=== PATIENT | male | born 1955 | race Caucasian/White ===

== ENCOUNTER → 2022-05-26 11:23 | Outpatient (BNVA) | payer BC, MEDICARE, SELFPAY | PROVIDERS: Visit Provider Nurse Practitioner Family | DX: R25.9 Unspecified abnormal involuntary movements (principal); F39 Unspecified mood [affective] disorder | CPT/HCPCS: 99212 ==

== ENCOUNTER → 2022-08-27 11:23 | Outpatient (BNVA) | payer MEDICARE, SELFPAY | PROVIDERS: Visit Provider Nurse Practitioner Family | DX: R25.9 Unspecified abnormal involuntary movements (principal); F39 Unspecified mood [affective] disorder | CPT/HCPCS: 99212 ==

== ENCOUNTER → 2022-12-29 09:49 | Outpatient (BNVA) | payer MEDICARE, SELFPAY | PROVIDERS: PCP Internal Medicine; Visit Provider Nurse Practitioner Family | DX: R25.9 Unspecified abnormal involuntary movements (principal); F39 Unspecified mood [affective] disorder | CPT/HCPCS: 99212 ==

== ENCOUNTER 2023-05-05 09:26 | Outpatient (AMB) | payer MEDICARE, SELFPAY ==
--- NOTE | 2023-05-05 09:47 | A.OFFVIS_ITS ---
Intake Vital Signs 05/05/23 09:50 Height 5 ft 6 in Weight 194 lb 4 oz BMI 31.3 BP 136/74 Blood Pressure Location Rt brachial Position Sitting Pulse 61 Pulse Source Pulse Oximeter Pulse Oximetry (%) 97 Oxygen Delivery Method Room Air Intake Visit Reasons: 4m follow up abn movements-Confirmed Intake Note: Patient presents for 4 month follow up. Patient states no concerns or issues today. Allergies No Known Allergies Allergy (Verified 05/05/23 09:50) Medication List - Last Reconciled 05/05/23 by ADÁN Arteaga betamethasone dipropionate 0.05% topical guaifenesin ER (Mucinex) 600 mg PO DAILY ibuprofen 800 mg PO TID PRN lisinopril-hydrochlorothiazide 20-12.5 mg 1 tab PO DAILY metformin 850 mg PO BID risperidone 0.5 mg PO BID 30 days sertraline 50 mg PO QAM simvastatin 20 mg PO BEDTIME sitagliptin phosphate (Januvia) 100 mg PO DAILY HPI HPI Comments History of Present Illness Details 67-yr-old male presents for f/u visit, a ccompanied by his . Pt denies any significant interval medical changes. Pt reports that he has stopped Lisinopril. Since, his throat clearing has decreased some but not fully. He states he is tolerating Risperidone well. Denies any tremors, other involuntary movements, sedation. [facility] Medical History Back injury Cognitive dysfunction Diabetes HLD (hyperlipidemia) Family History Mother Alzheimer disease Asthma Social History Alcohol intake: never Patient Tobacco Use Status: Never used Tobacco Review of Systems Const All systems reviewed & are unremarkable except as noted in HPI and below Physical Exam Vital Signs: Last Vital Signs Pulse 61 05/05/23 09:50 BP 136/74 05/05/23 09:50 Pulse Ox 97 05/05/23 09:50 Oxygen Delivery Method Room Air 05/05/23 09:50 BMI result Body Mass Index 31.3 Const General: cooperative and no acute distress Orientation/consciousness: patient oriented x3 HEENT Head: Yes normocephalic Resp Effort & Inspection: normal respiratory effort and able to speak in complete sentences Neuro Other: Intermittent throat clearing General: patient oriented x3, gait normal and CN's II-XI intact bilaterally Cognition (Neuro): normal cognition Motor exam (neuro): 5/5 motor strength present throughout Psych Appearance: grossly normal Mental Status: mental status grossly normal Speech and movement: Clear speech present Affect: normal affect Attitude: cooperative Thought process: Normal thought process present Assessment & Plan Assessment & Plan (1) Abnormal involuntary movement: Comment: tic disorder vs laryngeal dystonia w/o dysarthria Code(s): R25.9 - Unspecified abnormal involuntary movements (2) Mood disorder: Code(s): F39 - Unspecified mood [affective] disorder Plan Increase Risperidone from 0.5mg bid to 0.5mg qam and 1mg qhs Discussed that I would like to try weaning pt off of Lisinopril, as long as Dr Jasmine agrees, before increasing or trying an alternate neuroleptic tx, in hopes this lessens throat clearing episodes- per [facility] recommendations. Pt previously offered referral for psychotherapy- pt declined. Monitor mood. Future considerations: [place] [facility] [place] f/u in 4 months or sooner prn Medications: Changed From risperidone 0.5 mg PO BID 30 days 60 tabs 3RF To risperidone 1 tab in am and 2 tabs qhs orally 2 times a day; 30 days 60 tabs 3RF Coding Level of Care Code Est Pt Level 4 (02755) Diagnoses Abnormal involuntary movement R25.9 Mood disorder F39
[2023-05-05 09:50] VITALS: BP 136/74; PULSE 61; O2SAT 97; BMI 31.3
== END 2023-05-05 10:13 | disposition home or self-care (01) ==
PROVIDERS: PCP Internal Medicine; Visit Provider Nurse Practitioner Family
DX: R25.9 Unspecified abnormal involuntary movements (principal); F39 Unspecified mood [affective] disorder
CPT/HCPCS: 99214

== ENCOUNTER → 2023-05-05 09:26 | Outpatient (BNVA) | payer MEDICARE, SELFPAY | PROVIDERS: PCP Internal Medicine; Visit Provider Nurse Practitioner Family | DX: R25.9 Unspecified abnormal involuntary movements (principal); F39 Unspecified mood [affective] disorder | CPT/HCPCS: 99212 ==

== ENCOUNTER 2023-08-31 13:00 | Outpatient (AMB) | payer MEDICARE, SELFPAY ==
--- NOTE | 2023-08-31 13:02 | A.OFFVIS_ITS ---
Intake Vital Signs 08/31/23 13:03 Height 5 ft 6 in Weight 194 lb BMI 31.3 BP 98/70 Blood Pressure Location Rt brachial Position Sitting Pulse 70 Pulse Source Pulse Oximeter Pulse Oximetry (%) 95 Oxygen Delivery Method Room Air Intake Visit Reasons: 4 mo f/u - Abn movements-LVM Intake Note: Patient presents for follow up. no issues or concerns Allergies No Known Allergies Allergy (Verified 08/31/23 13:06) HPI HPI Comments History of Present Illness Details 67-yr-old male presents for f/u visit. P t is accompanied by his . Pt denies any significant interval medical changes. Pt reports he has had a decrease in his vocal clearing tics since the last visit, when we increased the risperdal. He is tolerating the risperdal well. His notes that he does not have good motivation- she feels he is sitting too much. He was doing better last summer, when they were camping as he has made friends and there are a lot of activities to do. They will return to camping on October 27- they have a stationary camper in [place]. He no longer drives his large camper- was not able to drive/manage it any longer. He does feel that he is forgetful- more STM- things that happened a week or two ago. He may forget his children's date of - that his son visited recently, what his son is doing for work. His manages all the finances. has always done this, he used to help organize the bills/financial paperwork but now he does not do this. He may misplace things. States he cannot walk d/t pain in his legs- he cannot describe- just a pain from his hips through his feet. States if he walks today, he will not be able to walk tomorrow. [facility] Medical History (Updated 08/31/23 @ 20:50 by ADÁN Arteaga) Back injury HLD (hyperlipidemia) Diabetes Cognitive dysfunction Family History Mother Alzheimer disease Asthma Social History Alcohol intake: never Patient Tobacco Use Status: Never used Tobacco Physical Exam Vital Signs: Last Vital Signs Pulse 70 08/31/23 13:03 BP 98/70 08/31/23 13:03 Pulse Ox 95 08/31/23 13:03 Oxygen Delivery Method Room Air 08/31/23 13:03 BMI result Body Mass Index 31.3 Const General: cooperative and no acute distress Orientation/consciousness: patient oriented x3 Resp Effort & Inspection: normal respiratory effort and able to speak in complete sentences Neuro Other: Mild intermittent throat clearing General: patient oriented x3 Cranial nerves: Yes CN's II-XII intact bilaterally Cognition (Neuro): normal cognition Psych Appearance: grossly normal Mental Status: mental status grossly normal Speech and movement: Clear speech present Affect: normal affect Attitude: cooperative Assessment & Plan Assessment & Plan (1) Abnormal involuntary movement: Comment: tic disorder vs laryngeal dystonia w/o dysarthria Code(s): R25.9 - Unspecified abnormal involuntary movements (2) Mood disorder: Code(s): F39 - Unspecified mood [affective] disorder (3) Cognitive dysfunction: Comment: transient episodes of confusion, forgetfulness. Code(s): F09 - Unspecified mental disorder due to known physiological condition Plan Continue Risperidone 0.5mg qam and 1mg qhs Encouraged to increase walking. Offered PT- pt declines at this time. Pt previously offered referral for psychotherapy- pt declined. Monitor mood. Monitor cognition. Plan for f/u MMSE and Clock drawing at f/u. Future considerations: Referral to [facility] [place]. f/u in 6 months or sooner prn. Coding Level of Care Code Est Pt Level 4 (42881) Diagnoses Abnormal involuntary movement R25.9 Mood disorder F39 Cognitive dysfunction F09
[2023-08-31 13:03] VITALS: BP 98/70; PULSE 70; O2SAT 95; BMI 31.3
== END 2023-08-31 13:43 | disposition home or self-care (01) ==
PROVIDERS: PCP Internal Medicine; Visit Provider Nurse Practitioner Family
DX: R25.9 Unspecified abnormal involuntary movements (principal); F39 Unspecified mood [affective] disorder; R41.89 Other symptoms and signs involving cognitive functions and awareness
CPT/HCPCS: 99214

== ENCOUNTER → 2023-08-31 13:00 | Outpatient (BNVA) | payer MEDICARE, SELFPAY | PROVIDERS: PCP Internal Medicine; Visit Provider Nurse Practitioner Family | DX: F09 Unspecified mental disorder due to known physiological condition (principal); F39 Unspecified mood [affective] disorder; R25.9 Unspecified abnormal involuntary movements | CPT/HCPCS: 99212 ==

== ENCOUNTER 2024-03-01 13:27 | Outpatient (AMB) | payer MEDICARE, SELFPAY ==
[2024-03-01 13:45] VITALS: BP 98/72; PULSE 70; O2SAT 96; BMI 29.9
--- NOTE | 2024-03-01 13:45 | MHC.OFFVIS ---
Vital Signs 03/01/24 13:45 Height 5 ft 6 in Weight 185 lb BMI 29.9 BP 98/72 Blood Pressure Location Rt brachial Position Sitting Pulse 70 Pulse Source Pulse Oximeter Pulse Oximetry (%) 96 Oxygen Delivery Method Room Air Intake Visit Reasons: 6 mo f/u Intake Note: Patient presents for 6 month follow up. Allergies No Known Allergies Allergy (Verified 03/01/24 13:48) Medication List - Last Reconciled 03/01/24 by ADÁN Arteaga betamethasone dipropionate 0.05% topical guaifenesin ER (Mucinex) 600 mg PO DAILY ibuprofen 800 mg PO TID PRN lisinopril-hydrochlorothiazide 20-12.5 mg 1 tab PO DAILY metformin 850 mg PO BID risperidone 1 tab in am and 2 tabs qhs orally 2 times a day; 30 days sertraline 50 mg PO QAM simvastatin 20 mg PO BEDTIME sitagliptin phosphate (Januvia) 100 mg PO DAILY HPI Comments Details: 68-yr-old male presents for f/u visit. Pt denies any significant interval medical changes. Cough tic is a bit better- but does have good days and worse days- not sure what triggers worse days. Maybe certain foods. His memory is about the same. Some STM lapses. He may misplace things. His manages all the finances. has always done this, he used to help organize the bills/financial paperwork but now he does not do this. He is not physically active- states he cannot walk much as his legs hurt. He denies BLE numbness/tingling or weakness. He is not sure if he has leg cramps when walking. [facility] Medical History (Updated 03/01/24 @ 16:48 by ADÁN Arteaga) Back injury HLD (hyperlipidemia) Diabetes Cognitive dysfunction Family History Mother Alzheimer disease Asthma Social History Alcohol intake: never Patient Tobacco Use Status: Never used Tobacco Review of Systems Const All systems reviewed & are unremarkable except as noted in HPI and below Physical Exam Vital Signs: Last Vital Signs Pulse 70 03/01/24 13:45 BP 98/72 03/01/24 13:45 Pulse Ox 96 03/01/24 13:45 Oxygen Delivery Method Room Air 03/01/24 13:45 BMI result Body Mass Index 29.9 Const General: cooperative and no acute distress Orientation/consciousness: patient oriented x3 Resp Effort & Inspection: normal respiratory effort and able to speak in complete sentences Neuro Other: No vocal tic or cough observed today. Clock drawing- good clock drawing, numbers just slightly skewed counter clock-pizano. General: patient oriented x3, gait normal and CN's II-XI intact bilaterally Cognition (Neuro): normal cognition Gait exam (Neuro): Normal gait present Motor exam (neuro): 5/5 motor strength present throughout Deep tendon reflexes (DTR's): Right patellar reflex intensity grade: 1+ and Left patellar reflex intensity grade: 1+ Psych Appearance: grossly normal Mental Status: mental status grossly normal Speech and movement: Normal speech and movement present Affect: normal affect Attitude: cooperative Orientation What is the (year) (season) (date) (day) (month)?: year, season, date, day and month Where are we (state) (county) (town or city) (hospital) (floor)?: state, county, town or city, hospital/clinic and floor Registration Name of 3 unrelated objects clearly and slowly, then ask patient to repeat all 3 of them. (1st repeat determines score. Make sure they can repeat all three): object 1, object 2 and object 3 Attention & Calculation (CHOOSE ONE) Spell WORLD backwards (DLROW): 5 letters Language Show patient a wristwatch & ask what it is. Repeat for pencil.: watch and pencil Ask the patient to repeat the phrase 'No ifs, ands, or buts' after you.: correct Ask the patient to 'take a piece of paper with their right hand' 'fold paper in half' 'place paper on floor': take paper in right hand, fold paper in half and place paper on floor Print the sentence 'CLOSE YOUR EYES' on a piece. If patient actually closes eyes then score.: followed written direction Give patient a blank piece of paper & ask to write a sentence. Score if it contains a noun & verb.: sentence contains subject and verb Score Score: 26 Assessment & Plan Assessment & Plan (1) Abnormal involuntary movement: Comment: tic disorder vs laryngeal dystonia w/o dysarthria Code(s): R25.9 - Unspecified abnormal involuntary movements Category: Medical (2) Cognitive dysfunction: Comment: Transient episodes of confusion, forgetfulness. 03/01/24- MMSE 26/30, 2020- MMSE 27/30. Code(s): F09 - Unspecified mental disorder due to known physiological condition Category: Medical Plan Continue Risperidone 0.5mg qam and 1mg qhs Encouraged to increase walking. Offered PT- pt declines again today. Advised to pay attention to what type of leg pain he is having- such as leg cramps on walking. Pt previously offered referral for psychotherapy- pt declined. Monitor mood. MMSE score overall stable- however pt did take longer to complete certain aspects- and needed to spell WORLD backwards in [facility]. Will check labs for common etiologies of cognitive difficulties. Future considerations: f/u head imaging. [place] [facility] [place] f/u in 6 months or sooner prn. Orders: Orders Vitamin B12 and Folate Today E11.9 - Type 2 diabetes mellitus without complications, F09 - Unspecified mental disorder due to known physiological condition, F39 - Unspecified mood [affective] disorder, R25.9 - Unspecified abnormal involuntary movements Methylmalonic Acid Today E11.9 - Type 2 diabetes mellitus without complications, F09 - Unspecified mental disorder due to known physiological condition, F39 - Unspecified mood [affective] disorder, R25.9 - Unspecified abnormal involuntary movements Homocysteine Today E11.9 - Type 2 diabetes mellitus without complications, F09 - Unspecified mental disorder due to known physiological condition, F39 - Unspecified mood [affective] disorder, R25.9 - Unspecified abnormal involuntary movements CRP High Sensitivity Today E11.9 - Type 2 diabetes mellitus without complications, F09 - Unspecified mental disorder due to known physiological condition, F39 - Unspecified mood [affective] disorder, R25.9 - Unspecified abnormal involuntary movements TSH reflex Free T4 Today E11.9 - Type 2 diabetes mellitus without complications, F09 - Unspecified mental disorder due to known physiological condition, F39 - Unspecified mood [affective] disorder, R25.9 - Unspecified abnormal involuntary movements Folate Today E11.9 - Type 2 diabetes mellitus without complications, F09 - Unspecified mental disorder due to known physiological condition, F39 - Unspecified mood [affective] disorder, R25.9 - Unspecified abnormal involuntary movements Complete Blood Count Auto Diff Today E11.9 - Type 2 diabetes mellitus without complications, F09 - Unspecified mental disorder due to known physiological condition, F39 - Unspecified mood [affective] disorder, R25.9 - Unspecified abnormal involuntary movements Comprehensive Met. Panel Today E11.9 - Type 2 diabetes mellitus without complications, F09 - Unspecified mental disorder due to known physiological condition, F39 - Unspecified mood [affective] disorder, R25.9 - Unspecified abnormal involuntary movements Erythrocyte Sedimentation Rate Today E11.9 - Type 2 diabetes mellitus without complications, F09 - Unspecified mental disorder due to known physiological condition, F39 - Unspecified mood [affective] disorder, R25.9 - Unspecified abnormal involuntary movements Syphilis Screen Today E11.9 - Type 2 diabetes mellitus without complications, F09 - Unspecified mental disorder due to known physiological condition, F39 - Unspecified mood [affective] disorder, R25.9 - Unspecified abnormal involuntary movements Coding Level of Care Code Est Pt Level 4 (30579) Diagnoses Abnormal involuntary movement R25.9 Cognitive dysfunction F09
== END 2024-03-01 14:38 | disposition home or self-care (01) ==
PROVIDERS: PCP Internal Medicine; Visit Provider Nurse Practitioner Family
DX: R25.9 Unspecified abnormal involuntary movements (principal); R41.89 Other symptoms and signs involving cognitive functions and awareness
CPT/HCPCS: 99214

== ENCOUNTER → 2024-03-01 13:27 | Outpatient (BNVA) | payer MEDICARE, SELFPAY | PROVIDERS: PCP Internal Medicine; Visit Provider Nurse Practitioner Family | DX: R25.9 Unspecified abnormal involuntary movements (principal); F09 Unspecified mental disorder due to known physiological condition | CPT/HCPCS: 99212 ==

== ENCOUNTER 2024-12-29 08:47 | Outpatient (AMB) | payer MEDICARE, SELFPAY ==
[2024-12-29 09:00] VITALS: BP 104/60; PULSE 66; O2SAT 95; BMI 30.8
--- NOTE | 2024-12-29 09:00 | MHC.OFFVIS ---
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 Pt denies any significant interval medical changes. Patient reports his cough tic is a better. Today denies any specific triggers for his tics. Patient reports his memory is stable and denies any bothersome cognitive symptoms. His manages all the finances. has always done this, he used to help organize the bills/financial paperwork but now he does not do this. He is not physically active, son states patient used to walk regularly, but does not any longer. Patient does have a soccer [place] [address] [place] his house, so he could walk around that. 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 He denies any leg symptoms at this time. [facility] Medical History (Updated 03/01/24 @ 16:48 by ADÁN Arteaga) Back injury HLD (hyperlipidemia) Diabetes Cognitive dysfunction Family History Mother Alzheimer disease Asthma Social History Alcohol intake: never Patient Tobacco Use Status: Never used Tobacco Review of Systems Const All systems reviewed & are unremarkable except as noted in HPI and below Physical Exam Vital Signs: Last Vital Signs Pulse 66 12/29/24 09:00 BP 104/60 12/29/24 09:00 Pulse Ox 95 12/29/24 09:00 Oxygen Delivery Method Room Air 12/29/24 09:00 BMI result Body Mass Index 30.8 Const General: cooperative and no acute distress Orientation/consciousness: patient oriented x3 Resp Effort & Inspection: normal respiratory effort and able to speak in complete sentences Neuro Other: No vocal tic or cough observed today. General: patient oriented x3, gait normal and CN's II-XI intact bilaterally Cognition (Neuro): normal cognition Gait exam (Neuro): Normal gait present Motor exam (neuro): 5/5 motor strength present throughout Psych Appearance: grossly normal Mental Status: mental status grossly normal Speech and movement: Normal speech and movement present Affect: normal affect Attitude: cooperative Assessment & Plan Assessment & Plan (1) Abnormal involuntary movement: Comment: tic disorder vs laryngeal dystonia w/o dysarthria Code(s): R25.9 - Unspecified abnormal involuntary movements Category: Medical (2) Cognitive dysfunction: Comment: Transient episodes of confusion, forgetfulness. 03/01/24- MMSE 26/30, 2020- MMSE 27/30. Code(s): F09 - Unspecified mental disorder due to known physiological condition Category: Medical Plan Continue Risperidone 0.5mg qam and 1mg qhs Encouraged to increase walking. Patient previously reported he did not walk much due to leg pain, we will monitor. Pt previously offered referral for psychotherapy- pt declined. Monitor mood. Check MMSE and clock at follow-up appointment. We will follow-up on previous order for labs for common etiologies of cognitive difficulties. Future considerations: f/u head imaging. Referral to [facility] [place] t[place] clinic. f/u in 6 months or sooner prn. Medications: Changed From risperidone 1 tab in am and 2 tabs qhs orally 2 times a day; 30 days 90 tabs 6RF To risperidone 1 tab in am and 2 tabs qhs orally 2 times a day; 270 tabs 3RF 90 days Coding Level of Care Code Est Pt Level 4 (29182) Diagnoses Abnormal involuntary movement R25.9 Cognitive dysfunction F09
== END 2024-12-29 09:41 | disposition home or self-care (01) ==
LOC: HO.HSMS 08:47
PROVIDERS: PCP Internal Medicine; Visit Provider Nurse Practitioner Family
DX: R25.9 Unspecified abnormal involuntary movements (principal); R41.89 Other symptoms and signs involving cognitive functions and awareness
CPT/HCPCS: 99214

== ENCOUNTER → 2024-12-29 08:47 | Outpatient (BNVA) | payer MEDICARE, SELFPAY | PROVIDERS: PCP Internal Medicine; Visit Provider Nurse Practitioner Family | DX: R25.9 Unspecified abnormal involuntary movements (principal); F09 Unspecified mental disorder due to known physiological condition; R41.89 Other symptoms and signs involving cognitive functions and awareness | CPT/HCPCS: 99212 ==